=== PATIENT | male | born 2000 | race Caucasian/White ===

== ENCOUNTER 2020-05-25 05:04 | Emergency (ER) | payer OTHER ==
[~2020-05-25] VITALS: Ht 182.9 cm; Wt 81.8 kg
[2020-05-25 05:11] VITALS: TEMP 97.6
[2020-05-25 05:27] LABS: COLLECTION METHOD CLEAN CATCH
[2020-05-25 05:30] LABS: BASO # 0.1 (0.0-0.2); BASO % 1.1 % (0.0-2.0); EOS # 0.2 (0.0-0.7); EOS % 2.4 % (0-4.0); GRAN # 3.9 (1.4-6.5); GRAN % 45.6 % (42.2-75.2); HEMATOCRIT 44.5 % (42.0-52.0); HEMOGLOBIN 15.9 g/dl (13.5-18.0); LYMPH # 3.8 (1.2-3.4); LYMPH % 44.3 % (20.0-51.0); MEAN CELL VOLUME 86 fl (80.0-100.0); MEAN CORPUSCULAR HEMOGLOBIN 31 pg (27.0-31.0); MEAN CORPUSCULAR HGB CONC 36 g/dl (33.0-37.0); MEAN PLATELET VOLUME 10.2 fl (7.4-10.4); MONO # 0.5 (0.1-0.6); MONO % 6.2 % (1.7-9.3); PLATELET COUNT 264 K/mm3 (130-400); REDCELL DISTRIBUTION WIDTH-CV 11.6 % (11.5-14.5)
[2020-05-25 05:33] LABS: MUCOUS Present /lpf; PH 5 (5-8); SQUAMOUS EPITHELIAL None Seen /hpf; URINE APPEARANCE Clear; URINE BACTERIA None Seen /hpf; URINE BILIRUBIN Negative (NEGATIVE); URINE BLOOD 2+ (NEGATIVE); URINE COLOR Yellow; URINE GLUCOSE Negative (NEGATIVE); URINE KETONE Negative (NEGATIVE); URINE LEUKOCYTE ESTERASE Negative (NEGATIVE); URINE NITRATE Negative (NEGATIVE); URINE PROTEIN(semi-quant) Negative (NEGATIVE); URINE RBC >50 /hpf; URINE UROBILINOGEN Negative (NEGATIVE)
[2020-05-25 05:39] LABS: ALBUMIN 4.6 gm/dL (3.5-5.0); BILIRUBIN,TOTAL 0.6 mg/dL (0.0-1.0); CALCIUM 8.9 mg/dL (8.4-10.2); CREATININE, serum 1.14 (0.66-1.25); POTASSIUM 3.6 mmol/L (3.4-5.0); TOTAL PROTEIN 7.2 gm/dL (6.4-8.2)
[2020-05-25] MEDS ORDERED: ZOFRAN ODT4 MG PO (06:33)
[2020-05-25] MEDS ORDERED: NORCO 325 MG-51 TAB PO (06:33)
[2020-05-25 07:41] VITALS: BP 126/79; PULSE 71
== END 2020-05-25 07:43 | disposition home or self-care (01) ==
LOC: COL.ER 05:04
PROVIDERS: Emergency Medicine
DX: N20.1 Calculus of ureter (principal); N23 Unspecified renal colic; Z88.1 Allergy status to other antibiotic agents
CPT/HCPCS: J1885; J2405; J7030; Q9967